=== PATIENT | female | born 2005 | race Two or more races ===

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

== ENCOUNTER 2024-10-31 07:32 | Emergency (ER) | payer MEDICAID ==
[~2024-10-31] VITALS: Ht 162.6 cm; Wt 55.1 kg
[2024-10-31 08:01] VITALS: BP 111/69; PULSE 91; RESP 20; TEMP 99.5; O2SAT 97
[2024-10-31] MEDS ORDERED: ACET500T58 PO (11:00)
[2024-10-31] MEDS ORDERED: BENZ100C97 PO (11:00)
[2024-10-31] MEDS ORDERED: AUG875T PO (11:00)
[2024-10-31] MEDS ORDERED: PROM1SOL4 PO (11:00)
[2024-10-31] MEDS ORDERED: PSEU240T PO (11:00)
--- NOTE | 2024-10-31 11:00 | ED.PDOC ---
SOB-HPI HPI Comments This is a pleasant 19-year-old female with a MHx that presents with a chief complaint of URI symptoms and sinus pressure for the last seven days findings unable to get adequate relief with [id number] medications. Denies any red flags Chief Complaint: Flu like Time Seen by MD: 07:44 Primary Care Provider: ASHLEIGH Reviewed notes: Nurses Notes, Medications, Allergies Information Source: Patient Mode of Arrival: Ambulatory Family History Family History: Unknown Social History Lives In: Home All Other Systems: Reviewed and Negative (Per HPI) Physical Exam General Appearance: No Apparent Distress, Normal HEENT: Normal ENT Inspection, Pharynx Normal, TMs Normal, Other (frontal and maxillary TTP) Neck: Full Range of Motion, Non-Tender, Normal, Normal Inspection Respiratory: Chest Non-Tender, Lungs Clear, No Accessory Muscle Use, No Respiratory Distress, Normal Breath Sounds Cardiovascular: No Edema, No JVD, No Murmur, No Gallop, Normal Peripheral Pulses, Regular Rate/Rhythm Breast Exam: Deferred Gastrointestinal: No Organomegaly, Non Tender, No Pulsatile Mass, Normal Bowel Sounds, Soft Genitalia: Deferred Pelvic: Deferred Rectal: Deferred Extremities: No calf tenderness, Normal capillary refill, Normal inspection, Normal range of motion, Non-tender, No pedal edema Musculoskeletal : Apperance: Normal Neurologic: Alert, 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 Was a procedure done?: No Differential Dx Differential Diagnosis: Sinusitis, URI X-Ray, Labs, Meds, VS Vital Signs Date Time Temp Pulse Resp B/P (MAP) Pulse Ox O2 Delivery O2 Flow Rate FiO2 10/31/24 08:01 91 20 97 Room Air 10/31/24 08:01 99.5 91 20 111/69 (83) 97 99.5 10/31/24 07:35 99.5 91 20 111/69 (83) 97 99.5 X-Ray, Labs, Meds, VS Comment Differential considered but not limited to frontal headache, migraine, URI. Chela ent is not immunocompromised, they are non-toxic, there are no high fevers and do not present with an intractable headache, During the physical exam there was TTP over the frontal and maxillary sinuses consistent with sinusitis therefore routine imaging such as CT was deferred during this visit. Prescribed antibiotics for presentation of symptoms. Complete course of antibiotic therapy even if symptoms improve or resolve. There should be no leftover antibiotics as this can lead to antibiotic resistant bacteria and even worse infection. Potential side effects discussed including abdominal pain, nausea, diarrhea. Also recommend antihistamines, decongestants and antipyretics as needed. External notes reviewed. Test results and diagnostic imaging interpreted. All diagnostic findings, discharge care, education and instructions provided Follow-up with PCP in 2 to 3 days Patient verbalized understanding and agreed to treatment plan Vital signs stable, afebrile, no acute distress noted Patient ambulatory with strong steady gait Advised to return precautions for any new or worsening symptoms, return to ER immediately for re-evaluation Patient is aware that the purpose of this visit was for an acute medical emergency requiring emergent stabilization. Chronic conditions, including malignancies have not been ruled out. Patient is instructed to follow up with PCP as directed and discharge instructions for continued care and workup. If unable to arrange follow-up, patient is to return to the emergency department for reassessment. Patient (parent or legal guardian if applicable) was given verbal and written discharge instructions and acknowledges understanding. Time of 1ST Reevaluation: 10:45 Reevaluation 1ST: Improved Patient Education/Counseling: Diagnosis, Treatment Family Education/Counseling: Diagnosis, Treatment Departure 1 Departure Time of Disposition: 10:58 Impression: Primary Impression: Sinusitis Qualified Codes: J01.10 - Acute frontal sinusitis, unspecified Disposition: 01 HOME / SELF CARE / HOMELESS Condition: Stable e-Prescriptions Pseudoephedrine (Sudafed 24 Hour) 240 Mg Tab 240 MG PO DAILY for 10 Days, #10 TAB 0 Refills Prov: ARNOLD JOHNSON [employer] SAF[employer] SPECIALIST 10/31/24 Acetaminophen (Acetaminophen) 500 Mg Tab 500 MG PO Q6HP PRN for 10 Days, #40 TAB 0 Refills Prov: ARNOLD JOHNSON [employer] SAF[employer] SPECIALIST 10/31/24 Promethazine-Dm (Promethazine Dm 6.25-15 mg/5Ml) 1 Shreya Shreya 5 ML PO TID for 10 Days, #150 ML 0 Refills Prov: ARNOLD JOHNSON [employer] SAF[employer] SPECIALIST 10/31/24 Benzonatate (Benzonatate) 100 Mg Cap 1 CAP PO TID for 10 Days, #30 CAP 0 Refills Prov: ARNOLD JOHNSON NP 10/31/24 Amoxicillin & Pot Clavulanate (AUGMENTIN TABLET) 875 Mg Tb 875 MG PO BID for 7 Days, #14 TAB 0 Refills Prov: ARNOLD JOHNSON [employer] S[employer] SPECIALIST 10/31/24 Critical Care Note Critical Care Time?: No Stability Stability form required: No Heart Score Heart Score: Heart Score Response (Comments) Value History N/A 0 EKG N/A 0 Age N/A 0 Risk Factors N/A 0 Troponin N/A 0 Total 0 ARNOLD JOHNSON [employer] SAF[employer] SPECIALIST Oct 31, 2024 11:00
== END 2024-10-31 11:02 | disposition home or self-care (01) ==
LOC: ER 07:32
DX: J01.90 Acute sinusitis, unspecified (principal)